=== PATIENT | female | born 1955 | race American Indian/Alaskan Native ===

== ENCOUNTER 2016-03-03 12:29 | Emergency (ER) | payer BC ==
[2016-03-03] MEDS ORDERED: TYLENOL PO ONE (14:05)
--- NOTE | 2016-03-03 14:10 | Emergency Department Report ---
Chief Complaint: Upper Respiratory Infection Stated Complaint: COUGH/FLU SX Time Seen by Provider: 03/03/16 14:08 - HPI History of Present Illness: 60 y/o female complain of sudden onset of generalized body ache .pt is current crying and state she feel weak x 2 days .no prior medical treatment. - ROS Review of Systems: per HPI - Exam Vital Signs: Vital Signs 03/03/16 13:36 Temperature 102.2 F H Pulse Rate 103 H Respiratory 22 Rate Blood Pressure 122/64 O2 Sat by Pulse 99 Oximetry Physical Exam: GENERAL: The patient is well-developed and well-nourished. Patient is in NAD. HENT: Normocephalic. Atraumatic. Patient has moist mucous membranes. Throat: No erythema, swelling or exudates. EYES: Extraocular motions are intact, PERRL NECK: Supple. No meningitic signs are noted. There is no adenopathy noted. CHEST/LUNGS: Clear to auscultation bilaterally. No wheezing, rales or rhonchi noted. There is no respiratory distress noted. HEART/CARDIOVASCULAR: Regular rate and rhythm. Normal S1 S2. No murmurs, rubs , clicks, or gallops. ABDOMEN: Abdomen is soft, nontender.. Bowel sounds normoactive. There is no abdominal distention. Negative rebound tenderness. : Deferred. SKIN: There is no rash. There is no edema. There is no diaphoresis. NEURO: The patient is A&Ox3. The patient has no focal neurologic deficits. MUSCULOSKELETAL: There is no tenderness or deformity. There is no limitation range of motion. PSYCH: Pt has appropriate mood and affect. MSE screening note: Focused history and physical exam performed. Due to findings the following was ordered: ED Disposition for MSE Condition: Stable
--- NOTE | 2016-03-03 14:35 | XRay Report ---
ROUTINE CHEST, TWO VIEWS: HISTORY: Cough, upper respiratory infection. The trachea, heart, mediastinal contour, lung skinner and bony thorax are unremarkable. IMPRESSION: Unremarkable chest x-ray.
[2016-03-03 15:05] LABS: Basophils % (Auto) 0.7 % (0.0-1.8); Eosinophils % (Auto) 0.3 % (0.0-4.3); Hematocrit 36.9 % (30.3-42.9); Hemoglobin 12.2 gm/dl (10.1-14.3); Mean Corpuscular HGB Conc 33 % (30-34); Mean Corpuscular Volume 79 fl (79-97); Platelet Count 178 K/mm3 (140-440); Red Cell Distribution Width 14.4 % (13.2-15.2); White Blood Count 9.1 K/mm3 (4.5-11.0)
[2016-03-03 15:09] LABS: Mean Corpuscular Hemoglobin 26 pg (28-32)
[2016-03-03 15:15] LABS: BUN/Creatinine Ratio 12.85; Blood Urea Nitrogen 9 mg/dL (7-17); Carbon Dioxide 23 mmol/L (22-30); Glucose 101 mg/dL (65-100); Potassium 3.8 mmol/L (3.6-5.0); Sodium 138 mmol/L (137-145)
[2016-03-03 15:26] LABS: Anion Gap 18 mmol/L
[2016-03-03 16:08] LABS: Bilirubin,Urine NEG (Negative); Blood,Urine NEG (Negative); Ketones,Urine NEG (Negative); Leukocyte Esterase,Urine NEG (Negative); Mucus,Urine FEW /HPF; Nitrite,Urine NEG (Negative); Protein,Urine <15 mg/dL mg/dL (Negative); Urobilinogen,Urine < 2.0 mg/dL (<2.0)
[2016-03-04 04:38] VITALS: BP 123/77
[2016-03-04] MEDS ORDERED: TORADOL IM ONE (05:12)
--- NOTE | 2016-03-04 05:19 | Emergency Department Report ---
- General Chief Complaint: Upper Respiratory Infection Stated Complaint: COUGH/FLU SX Time Seen by Provider: 03/04/16 04:50 Source: patient Mode of arrival: Ambulatory Limitations: No Limitations - History of Present Illness Initial Comments: Patient complains of 2 day onset of flu symptoms. States coughing of mucus, has generalized body aches, and her chest pain with coughing and certain movements. States chest pain radiates from left chest to right depending on how she positions her self. Denies headache, difficulty breathing or SOB, fever, chills, N/V/D, abdomen or flank pain, tingling, numbness. States no relief with Ibuprofen. - Related Data Previous Rx's Medication Instructions Recorded Last Taken Type Hydrocodone Bit/Homatrop Me-Br 5 ml PO Q4H PRN #90 cc 01/20/13 Unknown Rx [Hydrocodone-Homatropine Syr 5-1.5 mg/5ml] Amoxicillin [Trimox CAP] 500 mg PO Q8H #30 capsule 04/16/14 Unknown Rx HYDROcodone/APAP 5-325 [[place] 1 each PO Q6HR PRN #12 tablet 04/16/14 Unknown Rx 5-325 mg TAB] Promethazine Dm [Phenergan Dm 5 ml PO Q6H PRN #120 ml 04/16/14 Unknown Rx 6.25/15 mg 5 ml] Acetaminophen/Codeine [Tylenol #3] 1 tab PO Q6H PRN #5 tab 03/04/16 Unknown Rx Azithromycin [Zithromax] 250 mg PO QDAY #6 tablet 03/04/16 Unknown Rx Benzonatate [Tessalon Perles] 100 mg PO Q8HR #30 capsule 03/04/16 Unknown Rx Allergies Allergy/AdvReac Type Severity Reaction Status Date / Time No Known Allergies Allergy Verified 01/20/13 14:02 ED Review of Systems ROS: Stated complaint: COUGH/FLU SX Other details as noted in HPI Comment: All other systems reviewed and negative ED Past Medical Hx - Past Medical History Previous Medical History?: No - Surgical History Past Surgical History?: Yes Additional Surgical History: - Social History Smoking Status: Current Every Day Smoker Substance Use Type: Alcohol, Non Opiate Pain, Prescribed - Medications Home Medications: Home Medications Medication Instructions Recorded Confirmed Last Taken Type Hydrocodone Bit/Homatrop Me-Br 5 ml PO Q4H PRN #90 cc 01/20/13 Unknown Rx [Hydrocodone-Homatropine Syr 5-1.5 mg/5ml] Amoxicillin [Trimox CAP] 500 mg PO Q8H #30 capsule 04/16/14 Unknown Rx HYDROcodone/APAP 5-325 [[place] 1 each PO Q6HR PRN #12 tablet 04/16/14 Unknown Rx 5-325 mg TAB] Promethazine Dm [Phenergan Dm 5 ml PO Q6H PRN #120 ml 04/16/14 Unknown Rx 6.25/15 mg 5 ml] Acetaminophen/Codeine [Tylenol #3] 1 tab PO Q6H PRN #5 tab 03/04/16 Unknown Rx Azithromycin [Zithromax] 250 mg PO QDAY #6 tablet 03/04/16 Unknown Rx Benzonatate [Tessalon Perles] 100 mg PO Q8HR #30 capsule 03/04/16 Unknown Rx ED Physical Exam - General Limitations: No Limitations General appearance: alert, in no apparent distress - Head Head exam: Present: atraumatic, normocephalic - Eye Eye exam: Present: normal appearance, PERRL, EOMI. Absent: scleral icterus, conjunctival injection, periorbital swelling, periorbital tenderness - ENT ENT exam: Present: normal exam, normal orophraynx, mucous membranes moist, TM's normal bilaterally, normal external ear exam - Neck Neck exam: Present: normal inspection, full ROM. Absent: tenderness, meningismus, lymphadenopathy - Respiratory Respiratory exam: Present: normal lung sounds bilaterally. Absent: respiratory distress, wheezes, rales, rhonchi, stridor, chest wall tenderness, accessory muscle use, decreased breath sounds, prolonged expiratory - Cardiovascular Cardiovascular Exam: Present: regular rate, normal rhythm - GI/Abdominal GI/Abdominal exam: Present: soft, normal bowel sounds. Absent: distended, tenderness, organomegaly - Extremities Exam Extremities exam: Present: normal inspection, full ROM, normal capillary refill. Absent: tenderness, pedal edema, joint swelling, calf tenderness - Back Exam Back exam: Present: normal inspection, full ROM. Absent: tenderness, CVA tenderness (R), CVA tenderness (L), vertebral tenderness - Neurological Exam Neurological exam: Present: alert, oriented X3, normal gait, reflexes normal. Absent: motor sensory deficit - Psychiatric Psychiatric exam: Present: normal affect, normal mood - Skin Skin exam: Present: warm, dry, intact, normal color. Absent: rash, cyanosis, diaphoretic, erythema, urticaria, vesicles, petechiae, pallor ED Course Vital Signs 03/03/16 03/04/16 03/04/16 13:36 00:23 04:38 Temperature 102.2 F H 99.9 F H Pulse Rate 103 H 95 H 85 Respiratory 22 18 20 Rate Blood Pressure 122/64 123/71 Blood Pressure 123/77 [Right] O2 Sat by Pulse 99 99 100 Oximetry ED Medical Decision Making - Lab Data Result diagrams: 03/03/16 14:38 03/03/16 14:38 Lab results reviewed. - Radiology Data Radiology results: report reviewed According to radiology report of CXR, no acute cardiopulmonary pathology. - Differential Diagnosis URI, bronchitis Critical care attestation.: If time is entered above; I have spent that time in minutes in the direct care of this critically ill patient, excluding procedure time. ED Disposition Clinical Impression: Flu-like symptoms URI (upper respiratory infection) Qualifiers: URI type: unspecified URI Qualified Code(s): J06.9 - Acute upper respiratory infection, unspecified Disposition: DISCHARGED TO HOME OR SELFCARE Is pt being admited?: No Does the pt Need Aspirin: No Condition: Stable Instructions: Musculoskeletal Pain (ED), Upper Respiratory Infection (ED) Referrals: PRIMARY CARE, [Primary Care Provider] - 2-3 Days [facility] [Outside] - 2-3 Days
== END 2016-03-04 05:37 | disposition home or self-care (01) ==
LOC: ED 12:29
DX: J11.1 Influenza due to unidentified influenza virus with other respiratory manifestations (principal); J06.9 Acute upper respiratory infection, unspecified; F17.210 Nicotine dependence, cigarettes, uncomplicated
CPT/HCPCS: 36415; 71020; 80048; 81001; 85025; 87400; 93005; 93010; 96372; 99284; J1885

== ENCOUNTER 2021-09-26 12:35 | Inpatient (IN) | payer BC, MEDICARE ==
--- NOTE | 2021-09-26 12:57 | Emergency Department Report ---
ED General Adult HPI - General Chief complaint: Chest Pain Stated complaint: CHESTPAIN Time Seen by Provider: 09/26/21 12:54 Source: patient, EMS (Verbal report received from emergency medical services. EMS documentation not available at time of chart dictation ), RN notes reviewed, old records reviewed Mode of arrival: Stretcher Limitations: No Limitations - History of Present Illness Initial comments: The patient was evaluated in the emergency department for symptoms described in the history of present illness. He/she was evaluated in the context of the global COVID-19 pandemic, which necessitated consideration that the patient might be at risk for infection with the virus that causes COVID-19. Institutional protocols and algorithms that pertain to the evaluation of patients at risk for COVID-19 are in a state of rapid change based on inf ormation released by regulatory bodies including the CDC and federal and state organizations. These policies and algorithms were followed during the patient's care in the emergency department. Please note that these policies, procedures and recommendations changed on a rapid basis. This is a pleasant and cooperative 65-year-old female, with a past medical history of alcohol, tobacco and marijuana use, with a positive family history of [place] in brother, who experienced a myocardial infarction at the age of 69. The patient presents to the department today with a complaint of left-sided chest p ain that is associated with back pain. There is no vomiting or diaphoresis or exertional shortness of breath. The pain is intermittent. It does not have exacerbating or relieving factors. No recent aspirin consumption. No travel, surgery, immobilization, DVT or pulmonary embolism risk factors. Patient had a negative nuclear stress test here in 2017. Reports that she has not had a cardiac stratification since then that she is aware of. She was had an outpatient primary care doctor's appointment, started to have chest pain, and EMS was called. The patient reports episodic left-sided nonexertional chest pain, although it appears to be worsening in intensity and frequency, over the past few weeks. -: Gradual, Sudden Location: chest, left Radiation: back Severity scale (0 -10): 8 Quality: aching Consistency: intermittent Improves with: none Worsens with: none Associated Symptoms: denies other symptoms - Related Data Allergies Allergy/AdvReac Type Severity Reaction Status Date / Time No Known Allergies Allergy Verified 09/26/21 12:46 ED Review of Systems ROS: Stated complaint: CHESTPAIN Other details as noted in HPI Comment: All other systems reviewed and negative Cardiovascular: chest pain Musculoskeletal: back pain ED Past Medical Hx - Past Medical History Hx Congestive Heart Failure: No Hx Diabetes: No Hx Asthma: No Hx COPD: No - Surgical History Additional Surgical History: - Social History Smoking Status: Current Every Day Smoker Substance Use Type: None ED Physical Exam - General Limitations: No Limitations General appearance: alert, in no apparent distress - Head Head exam: Present: atraumatic, normocephalic - Eye Eye exam: Present: normal appearance, EOMI. Absent: nystagmus - ENT ENT exam: Present: normal exam, normal orophraynx, mucous membranes moist, normal external ear exam - Neck Neck exam: Present: normal inspection, full ROM. Absent: tenderness, meningismus - Respiratory Respiratory exam: Present: normal lung sounds bilaterally. Absent: respiratory distress, wheezes, rales, rhonchi, stridor, chest wall tenderness, decreased breath sounds - Cardiovascular Cardiovascular Exam: Present: regular rate, normal rhythm, normal heart sounds. Absent: bradycardia, tachycardia, irregular rhythm, systolic murmur, diastolic murmur, rubs, gallop - GI/Abdominal GI/Abdominal exam: Present: soft. Absent: distended, tenderness, guarding, rebound, rigid, pulsatile mass - Extremities Exam Extremities exam: Present: normal inspection, full ROM, normal capillary refill, other (2+ pulses noted in the bilateral upper and lower extremities. There is no palpable cord. negative Homans sign. Muscular compartments are soft. The pelvis is stable.). Absent: pedal edema, calf tenderness - Back Exam Back exam: Present: normal inspection, full ROM. Absent: tenderness, CVA tenderness (R), CVA tenderness (L), paraspinal tenderness, vertebral tenderness - Neurological Exam Neurological exam: Present: alert, oriented X3, normal gait, other (2+ pulses noted in the bilateral upper and lower extremities. There is no palpable cord. negative Homans sign. Muscular compartments are soft. The pelvis is stable.). Absent: motor sensory deficit - Psychiatric Psychiatric exam: Present: normal affect, normal mood - Skin Skin exam: Present: warm, dry, intact, normal color. Absent: rash ED Course Vital Signs 09/26/21 09/26/21 09/26/21 09:01 09:16 09:30 Temperature Pulse Rate 72 69 77 Respiratory 22 18 15 Rate Blood Pressure 110/71 110/71 110/71 Blood Pressure [Left] O2 Sat by Pulse 98 99 100 Oximetry 09/26/21 09/26/21 09/26/21 09:46 10:00 12:43 Temperature 98.2 F Pulse Rate 71 74 96 H Respiratory 23 10 L 16 Rate Blood Pressure 109/73 109/73 Blood Pressure 152/90 [Left] O2 Sat by Pulse 99 98 99 Oximetry 09/26/21 09/26/21 09/26/21 13:01 13:15 13:20 Temperature Pulse Rate 64 71 Respiratory 16 10 L Rate Blood Pressure 147/71 127/76 Blood Pressure [Left] O2 Sat by Pulse 100 99 98 Oximetry 09/26/21 09/26/21 09/26/21 13:31 13:45 14:01 Temperature Pulse Rate 62 73 68 Respiratory 15 15 14 Rate Blood Pressure 127/76 132/84 132/84 Blood Pressure [Left] O2 Sat by Pulse 100 98 99 Oximetry 09/26/21 09/26/21 09/26/21 14:15 14:31 14:45 Temperature Pulse Rate 72 85 82 Respiratory 17 11 L 13 Rate Blood Pressure 127/76 142/74 127/76 Blood Pressure [Left] O2 Sat by Pulse 100 98 97 Oximetry 09/26/21 09/26/21 09/26/21 15:01 15:15 15:31 Temperature Pulse Rate 71 70 77 Respiratory 12 11 L 13 Rate Blood Pressure 127/76 127/76 127/76 Blood Pressure [Left] O2 Sat by Pulse 99 100 99 Oximetry 09/26/21 09/26/21 15:45 16:01 Temperature Pulse Rate 67 65 Respiratory 9 L 12 Rate Blood Pressure 127/76 127/76 Blood Pressure [Left] O2 Sat by Pulse 98 98 Oximetry - Reevaluation(s) Reevaluation #1: 09/26/21 15:12 Differential diagnosis, including but not limited to: GERD, gastritis, hiatal hernia, pneumonia, costochondritis, acute coronary syndrome Assessment and plan 65-year-old female, who is not currently tachycardic, tachypneic or hypoxic, who denies DVT and pulmonary embolism risk factors, who is low risk by Wells criteria for pulmonary embolism, who is moderate risk for major adverse cardiac event as per heart score, with acute chest pain nonspecifically abnormal EKG. Laboratory studies reviewed and appreciated. X-ray of the chest reviewed and appreciated. We will treat the patient supportively and symptomatically. Recommend admission to the medical service for acute chest pain and a cardiac risk stratification Discussed this with the patient. She is agreeable to the plan of care Awaiting callback from hospital physician to arrange admission. Treat with , nitroglycerin, and appropriate medications. Currently resting comfortably in stretcher. Patient given full dose aspirin by EMS. Patient has equal pulses in the upper and lower extremities. She has no pulsatile abdominal mass. She is not especially hypertensive. Mediastinum chest x-ray is unremarkable. I think acute aortic disease is very unlikely. 09/26/21 15:14 09/26/21 16:33 Dr Erica Fine to admit to [facility] ED Medical Decision Making - Lab Data Result diagrams: 09/26/21 Unknown 09/26/21 Unknown Vital Signs 09/26/21 09/26/21 09/26/21 09:01 09:16 09:30 Temperature Pulse Rate 72 69 77 Respiratory 22 18 15 Rate Blood Pressure 110/71 110/71 110/71 Blood Pressure [Left] O2 Sat by Pulse 98 99 100 Oximetry 09/26/21 09/26/21 09/26/21 09:46 10:00 12:43 Temperature 98.2 F Pulse Rate 71 74 96 H Respiratory 23 10 L 16 Rate Blood Pressure 109/73 109/73 Blood Pressure 152/90 [Left] O2 Sat by Pulse 99 98 99 Oximetry 09/26/21 09/26/21 09/26/21 13:01 13:15 13:20 Temperature Pulse Rate 64 71 Respiratory 16 10 L Rate Blood Pressure 147/71 127/76 Blood Pressure [Left] O2 Sat by Pulse 100 99 98 Oximetry Lab Results 09/26/21 09/26/21 09/26/21 Range/Units Unknown Unknown Unknown WBC 7.4 (4.5-11.0) K/mm3 RBC 4.67 (3.65-5.03) M/mm3 Hgb 12.8 (10.1-14.3) gm/dl Hct 37.7 (30.3-42.9) % MCV 81 (79-97) fl MCH 27 L (28-32) pg MCHC 34 (30-34) % RDW 15.0 (13.2-15.2) % Plt Count 189 (140-440) K/mm3 Lymph % (Auto) 29.4 (13.4-35.0) % [place] % (Auto) 9.3 H (0.0-7.3) % Eos % (Auto) 0.7 (0.0-4.3) % Baso % (Auto) 0.8 (0.0-1.8) % Lymph # (Auto) 2.2 (1.2-5.4) K/mm3 [place] # (Auto) 0.7 (0.0-0.8) K/mm3 Eos # (Auto) 0.1 (0.0-0.4) K/mm3 Baso # (Auto) 0.1 (0.0-0.1) K/mm3 Seg Neutrophils % 59.8 (40.0-70.0) % Seg Neutrophils # 4.4 (1.8-7.7) K/mm3 PT 13.4 (12.2-14.9) Sec. INR 0.92 (0.87-1.13) Sodium 140 (137-145) mmol/L Potassium 3.8 (3.6-5.0) mmol/L Chloride 106.2 (98-107) mmol/L Carbon Dioxide 23 (22-30) mmol/L Anion Gap 15 mmol/L BUN 13 (7-17) mg/dL Creatinine 0.6 (0.6-1.2) mg/dL Estimated GFR > 60 ml/min BUN/Creatinine Ratio 22 % Glucose 89 (65-100) mg/dL Calcium 9.2 (8.4-10.2) mg/dL Magnesium 2.20 (1.7-2.3) mg/dL Total Bilirubin 0.30 (0.1-1.2) mg/dL AST 17 (5-40) units/L ALT 11 (7-56) units/L Alkaline Phosphatase 79 (35-129) units/L Total Creatine Kinase 146 H (30-135) units/L Troponin T < 0.010 (0.00-0.029) ng/mL Total Protein 7.1 (6.3-8.2) g/dL Albumin 4.6 (3.9-5) g/dL Albumin/Globulin Ratio 1.8 % - EKG Data -: EKG Interpreted by Ca EKG shows normal: sinus rhythm Rate: normal - EKG Data 09/26/21 15:05 The EKG is interpreted at 13: 07 Sinus rhythm, rate 62 bpm. Normal axis, normal P wave axis, left ventricular hypertrophy. Multiple T wave inversions and abnormalities. T wave inversions in the lateral leads appear to be more prominent than when on prior EKG from 2017. Inferior T wave abnormalities are more pronounced when compared to prior EKG. This EKG is not a STEMI. - Radiology Data Radiology results: pending, report reviewed, image reviewed CHEST 1 VIEW 09/26/2021 1:37 PM INDICATION / CLINICAL INFORMATION: Chest Pain. COMPARISON: None available. FINDINGS: SUPPORT DEVICES: None. HEART / MEDIAS TINUM: No significant abnormality. LUNGS / PLEURA: No significant pulmonary or pleural abnormality. No pneumothorax. ADDITIONAL FINDINGS: No significant additional findings. IMPRESSION: 1. No acute findings. Signer Name: Conrad Bo Jr, MD Signed: 09/26/2021 12:52 PM Workstation Name: [id number] Critical care attestation.: If time is entered above; I have spent that time in minutes in the direct care of this critically ill patient, excluding procedure time. ED Disposition Clinical Impression: Acute chest pain Disposition: ADMITTED INPATIENT Is pt being admited?: Yes Does the pt Need Aspirin: No (Given aspirin by EMS) Condition: Stable Instructions: Chest Pain (ED) Heart Score - HEART Score History: Moderately suspicious EKG: Non-specific Age: 45-65 Risk factors: 1-2 risk factors Troponin: < normal limit HEART Score: 4 - EKG Read Time Time EKG Completed: 13:07 EKG Read Time: 13:07 - Critical Actions Critical Actions: 4-6 pts:12-16.6% risk of adverse cardiac event. Should be admitted
[2021-09-26 13:41] LABS: Basophils # (Auto) 0.1 K/mm3 (0.0-0.1); Basophils % (Auto) 0.8 % (0.0-1.8); Eosinophils # (Auto) 0.1 K/mm3 (0.0-0.4); Eosinophils % (Auto) 0.7 % (0.0-4.3); Hematocrit 37.7 % (30.3-42.9); Hemoglobin 12.8 gm/dl (10.1-14.3); Lymphocytes # (Auto) 2.2 K/mm3 (1.2-5.4); Lymphocytes % (Auto) 29.4 % (13.4-35.0); Mean Corpuscular HGB Conc 34 % (30-34); Mean Corpuscular Volume 81 fl (79-97); Monocytes # (Auto) 0.7 K/mm3 (0.0-0.8); Monocytes % (Auto) 9.3 % (0.0-7.3); Platelet Count 189 K/mm3 (140-440); Red Blood Count 4.67 M/mm3 (3.65-5.03)
[2021-09-26 13:51] LABS: INR 0.92 (0.87-1.13)
--- NOTE | 2021-09-26 13:57 | XRay Report ---
CHEST 1 VIEW 09/26/2021 1:37 PM INDICATION / CLINICAL INFORMATION: Chest Pain. COMPARISON: None available. FINDINGS: SUPPORT DEVICES: None. HEART / MEDIASTINUM: No significant abnormality. LUNGS / PLEURA: No significant pulmonary or pleural abnormality. No pneumothorax. ADDITIONAL FINDINGS: No significant additional findings. IMPRESSION: 1. No acute findings. Signer Name: Conrad Bo Jr, MD Signed: 09/26/2021 1:52 PM Workstation Name: [id number]
[2021-09-26 14:06] LABS: Alanine Aminotransferase 11 units/L (7-56); Albumin 4.6 g/dL (3.9-5); Blood Urea Nitrogen 13 mg/dL (7-17); Calcium 9.2 mg/dL (8.4-10.2); Hemolysis Index 13
[2021-09-26 14:10] LABS: BUN/Creatinine Ratio 22
[2021-09-26] MEDS ORDERED: MORPHINE 4 MG/1 ML INJ IV ONE (14:24)
[2021-09-26] MEDS ORDERED: NITROGLYCERIN 0.4 MG TAB SUBL SL PRN (14:24)
[2021-09-26] MEDS ORDERED: PANTOPRAZOLE 40 MG INJ IV ONE (14:24)
[2021-09-26] MEDS ORDERED: ACETAMINOPHEN 325 MG TAB PO PRN ×2 (16:34→21:04)
[2021-09-26] MEDS ORDERED: ONDANSETRON 4 MG/2 ML INJ IV PRN ×2 (16:34→21:04)
--- NOTE | 2021-09-26 21:02 | History and Physical Report ---
History of Present Illness Date of examination: 09/26/21 Date of admission: 09/26/2021 Chief complaint: Chest pain since a.m. History of present illness: 65-year-old female with no significant past medical history but dependent on alcohol use, smoking and marijuana use and family history of coronary artery disease comes in for left-sided chest pain radiating to the back. Chest pain is about 8 on a scale of 1-10. No diaphoresis or shortness of breath. Chest pain is intermittent. No recent travel. No exacerbating or relieving factors. Chest pain is. - Past Medical History --No - Surgical History --Additional Surgical History: - Social History --Smoking Status: Current Every Day Smoker --Substance Use Type: None -Family history --Htn Review of Systems --ROS: Constitutional no weight loss or weight gain no fever or chills HEENT no sore throat no post nasal drip no diplopia Neck no neck stiffness no lymph gland enlargement Chest and lungs no shortness of breath cough or wheezing CVS chest pain since a.m. GI no nausea no vomiting no diarrhea Genitourinary system no dysuria no flank pain Musculoskeletal system no muscle pains no joint pains [employer] no syncope no seizures Skin no rash no itching Psychiatric no depression no homicidal or suicidal tendencies Hematologic no lymphedema or bruising Endocrine no polydipsia no polyuria no cold intolerance no heat intolerance Medications and Allergies Allergies Allergy/AdvReac Type Severity Reaction Status Date / Time No Known Allergies Allergy Verified 09/26/21 12:46 Active Meds: Active Medications Acetaminophen (Acetaminophen 325 Mg Tab) 650 mg PO Q4H PRN PRN Reason: Pain MILD(1-3)/Fever >100.5/[place] Nitroglycerin (Nitroglycerin 0.4 Mg Tab Subl) 0.4 mg SL .Q5MIN PRN PRN Reason: Chest Pain Last Admin: 09/26/21 14:42 Dose: 0.4 mg Ondansetron HCl (Ondansetron 4 Mg/2 Ml Inj) 4 mg IV Q8H PRN PRN Reason: Nausea And Vomiting Sodium Chloride (Sodium Chloride 0.9% 10 Ml Flush Syringe) 10 ml IV BID ALEX Last Admin: 09/26/21 19:30 Dose: 10 ml Sodium Chloride (Sodium Chloride 0.9% 10 Ml Flush Syringe) 10 ml IV PRN PRN PRN Reason: LINE FLUSH Exam - Constitutional Vitals: Temp Pulse Resp BP Pulse Ox 98.0 F 74 18 154/64 100 09/26/21 19:30 09/26/21 19:30 09/26/21 19:30 09/26/21 19:30 09/26/21 19:30 General appearance: Present: no acute distress, well-nourished - EENT Eyes: Present: PERRL ENT: hearing intact, clear oral mucosa - Neck Neck: Present: supple, normal ROM - Respiratory Respiratory effort: normal Respiratory: bilateral: CTA - Cardiovascular Heart rate: 78 Rhythm: regular Heart Sounds: Present: S1 & S2. Absent: rub, click - Extremities Extremities: no ischemia, pulses intact, pulses symmetrical, No edema Peripheral Pulses: within normal limits - Abdominal General gastrointestinal: Present: soft, non-tender, non-distended, normal bowel sounds Female genitourinary: Present: normal - Rectal Rectal Exam: deferred - Integumentary Integumentary: Present: clear, warm, dry - Musculoskeletal Musculoskeletal: gait normal, strength equal bilaterally - Psychiatric Psychiatric: appropriate mood/affect, intact judgment & insight - Neurologic Neurologic: CNII-XII intact, moves all extremities - Allied Health Allied health notes reviewed: nursing, case management HEART Score - HEART Score EKG: Non-specific Age: 45-65 Risk factors: 1-2 risk factors Troponin: Troponin T < 0.010 ng/mL (0.00-0.029) 09/26/21 Unknown Troponin: < normal limit - Critical Actions Critical Actions: 4-6 pts:12-16.6% risk of adverse cardiac event. Should be admitted Results - Labs CBC & Chem 7: 09/27/21 05:58 09/26/21 Unknown Labs: Laboratory Last Values WBC 7.4 K/mm3 (4.5-11.0) 09/26/21 Unknown RBC 4.67 M/mm3 (3.65-5.03) 09/26/21 Unknown Hgb 12.8 gm/dl (10.1-14.3) 09/26/21 Unknown Hct 37.7 % (30.3-42.9) 09/26/21 Unknown MCV 81 fl (79-97) 09/26/21 Unknown MCH 27 pg (28-32) L 09/26/21 Unknown MCHC 34 % (30-34) 09/26/21 Unknown RDW 15.0 % (13.2-15.2) 09/26/21 Unknown Plt Count 189 K/mm3 (140-440) 09/26/21 Unknown Lymph % (Auto) 29.4 % (13.4-35.0) 09/26/21 Unknown [place] % (Auto) 9.3 % (0.0-7.3) H 09/26/21 Unknown Eos % (Auto) 0.7 % (0.0-4.3) 09/26/21 Unknown Baso % (Auto) 0.8 % (0.0-1.8) 09/26/21 Unknown Lymph # (Auto) 2.2 K/mm3 (1.2-5.4) 09/26/21 Unknown [place] # (Auto) 0.7 K/mm3 (0.0-0.8) 09/26/21 Unknown Eos # (Auto) 0.1 K/mm3 (0.0-0.4) 09/26/21 Unknown Baso # (Auto) 0.1 K/mm3 (0.0-0.1) 09/26/21 Unknown Seg Neutrophils % 59.8 % (40.0-70.0) 09/26/21 Unknown Seg Neutrophils # 4.4 K/mm3 (1.8-7.7) 09/26/21 Unknown PT 13.4 Sec. (12.2-14.9) 09/26/21 Unknown INR 0.92 (0.87-1.13) 09/26/21 Unknown Sodium 140 mmol/L (137-145) 09/26/21 Unknown Potassium 3.8 mmol/L (3.6-5.0) 09/26/21 Unknown Chloride 106.2 mmol/L (98-107) 09/26/21 Unknown Carbon Dioxide 23 mmol/L (22-30) 09/26/21 Unknown Anion Gap 15 mmol/L 09/26/21 Unknown BUN 13 mg/dL (7-17) 09/26/21 Unknown Creatinine 0.6 mg/dL (0.6-1.2) 09/26/21 Unknown Estimated GFR > 60 ml/min 09/26/21 Unknown BUN/Creatinine Ratio 22 % 09/26/21 Unknown Glucose 89 mg/dL (65-100) 09/26/21 Unknown Calcium 9.2 mg/dL (8.4-10.2) 09/26/21 Unknown Magnesium 2.20 mg/dL (1.7-2.3) 09/26/21 Unknown Total Bilirubin 0.30 mg/dL (0.1-1.2) 09/26/21 Unknown AST 17 units/L (5-40) 09/26/21 Unknown ALT 11 units/L (7-56) 09/26/21 Unknown Alkaline Phosphatase 79 units/L (35-129) 09/26/21 Unknown Total Creatine Kinase 146 units/L (30-135) H 09/26/21 Unknown Troponin T < 0.010 ng/mL (0.00-0.029) 09/26/21 Unknown Total Protein 7.1 g/dL (6.3-8.2) 09/26/21 Unknown Albumin 4.6 g/dL (3.9-5) 09/26/21 Unknown Albumin/Globulin Ratio 1.8 % 09/26/21 Unknown Short CBC 09/26/21 09/27/21 Range/Units Unknown 05:58 WBC 7.4 6.1 (4.5-11.0) K/mm3 Hgb 12.8 12.4 (10.1-14.3) gm/dl Hct 37.7 36.7 (30.3-42.9) % Plt Count 189 182 (140-440) K/mm3 BMP 09/26/21 Unknown Sodium 140 Potassium 3.8 Chloride 106.2 Carbon Dioxide 23 BUN 13 Creatinine 0.6 Glucose 89 Calcium 9.2 Cardiac Enzymes 09/26/21 09/26/21 09/26/21 Range/Units 16:36 20:02 23:02 Total Creatine Kinase (30-135) units/L Troponin T < 0.010 < 0.010 < 0.010 (0.00-0.029) ng/mL 09/26/21 Range/Units Unknown Total Creatine Kinase 146 H (30-135) units/L Troponin T < 0.010 (0.00-0.029) ng/mL Liver Function 09/26/21 Range/Units Unknown Total Bilirubin 0.30 (0.1-1.2) mg/dL AST 17 (5-40) units/L ALT 11 (7-56) units/L Alkaline Phosphatase 79 (35-129) units/L Albumin 4.6 (3.9-5) g/dL - Imaging and Cardiology EKG: report reviewed Assessment and Plan Advance Directives: Yes (Full code) VTE prophylaxis?: Chemical Plan of care discussed with patient/family: Yes - Patient Problems (1) Acute coronary syndrome Current Visit: No Status: Acute Plan to address problem: Rule out myocardial ischemia Serial troponins Stress test is not available on weekends Will get stress test as an outpatient if troponins are negative No risk factors except for family history of coronary artery disease (2) Costochondritis, acute Current Visit: No Status: Acute Plan to address problem: Has some chest wall tenderness Possible costochondritis (3) DVT prophylaxis Current Visit: Yes Status: Acute Plan to address problem: On anticoagulation GI prophylaxis (4) Advance care planning Current Visit: Yes Status: Acute Plan to address problem: Disease education conducted, care plan discussed, diagnosis discussed And prognosis discussed. Patient acknowledged understanding with care plan. +30 minutes. Full code.
[2021-09-26] MEDS ORDERED: MORPHINE 2 MG/1 ML INJ IV PRN (21:04)
[2021-09-26] MEDS ORDERED: METOCLOPRAMIDE 10 MG/2 ML INJ IV PRN (21:04)
[2021-09-26] MEDS: FAMOTIDINE 20 MG TAB PO SCH (21:56)
[2021-09-26] MEDS: HEPARIN 5,000 UNIT/1 ML VIAL SUB-Q SCH (21:56)
[2021-09-26] MEDS: oxyCODONE /ACETAMINOPHEN 5-325MG TAB PO PRN (22:02)
[2021-09-27] MEDS: oxyCODONE /ACETAMINOPHEN 5-325MG TAB PO PRN (04:32)
[2021-09-27 06:59] LABS: Basophils % (Auto) 0.3 % (0.0-1.8); Eosinophils # (Auto) 0.1 K/mm3 (0.0-0.4); Eosinophils % (Auto) 1.3 % (0.0-4.3); Hematocrit 36.7 % (30.3-42.9); Hemoglobin 12.4 gm/dl (10.1-14.3); Lymphocytes # (Auto) 2.2 K/mm3 (1.2-5.4); Lymphocytes % (Auto) 36.1 % (13.4-35.0); Mean Corpuscular HGB Conc 34 % (30-34); Mean Corpuscular Volume 81 fl (79-97); Monocytes # (Auto) 0.6 K/mm3 (0.0-0.8); Monocytes % (Auto) 9.5 % (0.0-7.3); Platelet Count 182 K/mm3 (140-440); Red Blood Count 4.52 M/mm3 (3.65-5.03); Red Cell Distribution Width 14.8 % (13.2-15.2)
[2021-09-27 08:33] LABS: Alanine Aminotransferase 9 units/L (7-56); Albumin 4.2 g/dL (3.9-5); Blood Urea Nitrogen 11 mg/dL (7-17); Calcium 8.7 mg/dL (8.4-10.2); Hemolysis Index 10
[2021-09-27 08:38] LABS: BUN/Creatinine Ratio 18
--- NOTE | 2021-09-27 09:15 | Consultation ---
History of Present Illness Consult date: 09/27/21 Requesting physician: CRISTY RANDALL Consult reason: other (ACS) History of present illness: Pt is a 65-year-old AA female with no significant past medical hx who presented with complaints of chest pain. She reports it has been going on for several years but has become more severe lately. Pt describes pain as left-sided pressure "like something sitting on my chest." It sometimes radiates posteriorly to her left shoulder blade and sometimes to the right side of her chest. Episodes are sporadic and vary in duration. Aggravated and/or relieved by changing positions or bending over. Relieved by applying pressure to chest with hand. No associated sx, including palpitations, dizziness, lightheadedness, diaphoresis, SOB, or nausea. Pt also has unrelated reports of transient tingling in her right arm and a lump near her right elbow. She has been seen by our group during previous hospitalizations but has never followed up as an outpatient. Tn neg x 4 at this time. ECG reveals NSR w/anterolateral T wave inversions (which were present in 2017). Pt underwent Lexiscan stress MPI in 2017, which was negative for ischemia. Past History Past Medical History: No medical history Past Surgical History: denies: CABG, PTCA Social history: smoking, alcohol abuse Family history: CAD Medications and Allergies Allergies Allergy/AdvReac Type Severity Reaction Status Date / Time No Known Allergies Allergy Verified 09/26/21 12:46 Home Medications Medication Instructions Recorded Confirmed Last Taken Type No Known Home Medications [No 09/27/21 09/27/21 Unknown History Reported Home Medications] Active Meds: Active Medications Acetaminophen (Acetaminophen 325 Mg Tab) 650 mg PO Q4H PRN PRN Reason: Pain MILD(1-3)/Fever >100.5/[place] Famotidine (Famotidine 20 Mg Tab) 20 mg PO BID [facility] Last Admin: 09/26/21 21:56 Dose: 20 mg Heparin Sodium (Porcine) (Heparin 5,000 Unit/1 Ml Vial) 5,000 unit SUB-Q Q12HR [facility] Last Admin: 09/26/21 21:56 Dose: 5,000 unit Metoclopramide HCl (Metoclopramide 10 Mg/2 Ml Inj) 10 mg IV Q6H PRN PRN Reason: Nausea And Vomiting Morphine Sulfate (Morphine 2 Mg/1 Ml Inj) 2 mg IV Q4H PRN PRN Reason: Pain, Moderate (4-6) Last Admin: 09/26/21 23:11 Dose: 2 mg Nitroglycerin (Nitroglycerin 0.4 Mg Tab Subl) 0.4 mg SL .Q5MIN PRN PRN Reason: Chest Pain Last Admin: 09/26/21 14:42 Dose: 0.4 mg Ondansetron HCl (Ondansetron 4 Mg/2 Ml Inj) 4 mg IV Q8H PRN PRN Reason: Nausea And Vomiting Oxycodone/Acetaminophen (Oxycodone /Acetaminophen 5-325mg Tab) 1 tab PO Q6H PRN PRN Reason: Pain, Moderate (4-6) Last Admin: 09/27/21 04:32 Dose: 1 tab Sodium Chloride (Sodium Chloride 0.9% 10 Ml Flush Syringe) 10 ml IV BID ALEX Last Admin: 09/26/21 21:59 Dose: 10 ml Sodium Chloride (Sodium Chloride 0.9% 10 Ml Flush Syringe) 10 ml IV PRN PRN PRN Reason: LINE FLUSH Review of Systems Constitutional: no fever, no chills Ears, nose, mouth and throat: no nasal congestion, no sore throat Cardiovascular: chest pain, no orthopnea, no palpitations, no edema, no syncope, no lightheadedness, no shortness of breath, no claudication Respiratory: no cough, no shortness of breath Gastrointestinal: no abdominal pain, no nausea, no vomiting Genitourinary Female: no dysuria Musculoskeletal: no myalgias Integumentary: other (RUE lump near elbow), no rash, no wounds Neurological: tingling (transient RUE), no numbness, no seizures, no syncope, no vertigo, no headaches Endocrine: no cold intolerance, no heat intolerance Hematologic/Lymphatic: no easy bruising, no easy bleeding Allergic/Immunologic: no anaphylaxis Physical Examination Vital Signs Pulse Resp BP Pulse Ox 72 22 110/71 98 09/26/21 09:01 09/26/21 09:01 09/26/21 09:01 09/26/21 09:01 General appearance: no acute distress HEENT: Positive: EOMI, Normocephaly Neck: Negative: JVD/HJR Cardiac: Positive: Reg Rate and Rhythm, S1/S2 Lungs: Positive: clear to auscultation Neuro: Positive: Grossly Intact Abdomen: Positive: Soft. Negative: Tender Skin: Negative: Rash Musculoskeletal: No Pain Extremities: Present: warm. Absent: edema Results 09/27/21 05:58 09/27/21 05:58 Cardiac Enzymes 09/26/21 09/27/21 Range/Units Unknown 05:58 AST 17 16 (5-40) units/L Coagulation 09/26/21 Range/Units Unknown PT 13.4 (12.2-14.9) Sec. INR 0.92 (0.87-1.13) CBC 09/26/21 09/27/21 Range/Units Unknown 05:58 WBC 7.4 6.1 (4.5-11.0) K/mm3 RBC 4.67 4.52 (3.65-5.03) M/mm3 Hgb 12.8 12.4 (10.1-14.3) gm/dl Hct 37.7 36.7 (30.3-42.9) % Plt Count 189 182 (140-440) K/mm3 Lymph # (Auto) 2.2 2.2 (1.2-5.4) K/mm3 [place] # (Auto) 0.7 0.6 (0.0-0.8) K/mm3 Eos # (Auto) 0.1 0.1 (0.0-0.4) K/mm3 Baso # (Auto) 0.1 0.0 (0.0-0.1) K/mm3 Comprehensive Metabolic Panel 09/26/21 09/27/21 Range/Units Unknown 05:58 Sodium 140 142 (137-145) mmol/L Potassium 3.8 4.1 (3.6-5.0) mmol/L Chloride 106.2 103.6 (98-107) mmol/L Carbon Dioxide 23 22 (22-30) mmol/L BUN 13 11 (7-17) mg/dL Creatinine 0.6 0.6 (0.6-1.2) mg/dL Glucose 89 96 (65-100) mg/dL Calcium 9.2 8.7 (8.4-10.2) mg/dL AST 17 16 (5-40) units/L ALT 11 9 (7-56) units/L Alkaline Phosphatase 79 80 (35-129) units/L Total Protein 7.1 6.5 (6.3-8.2) g/dL Albumin 4.6 4.2 (3.9-5) g/dL - Imaging and Cardiology EKG: report reviewed, image reviewed - EKG Interpretation EKG: no acute changes EKG interpretations - EKG Sinus rhythms and dysrhythmias: sinus rhythm Additional Comments: ANTEROLATERAL TWI (PRESENT IN 2016) Assessment and Plan Assessment: Atypical Chest Pain Transient RUE Paresthesia Tobacco Abuse EtOH Abuse Plan: Chest appears to be musculoskeletal. Recommend Ibuprofen 600mg TID. Will plan for Lexiscan stress MPI on Wednesday given recurrent symptoms. Pt seen in conjunction with Dr. Durham, who agrees with the assessment and plan of care. - Patient Problems (1) Atypical chest pain Current Visit: Yes Status: Acute
[2021-09-27] MEDS: FAMOTIDINE 20 MG TAB PO SCH (10:21)
[2021-09-27] MEDS: HEPARIN 5,000 UNIT/1 ML VIAL SUB-Q SCH (10:21)
[2021-09-27] MEDS ORDERED: IBUPROFEN 600 MG TAB PO PRN (12:18)
--- NOTE | 2021-09-27 16:56 | Discharge Summary ---
Providers - Providers Date of Admission: 09/26/21 21:04 Attending physician: CRISTY RANDALL 09/26/21 21:18 Consult to Physician [CONS] Routine Comment: Consulting Provider: GIANNI LIU Physician Instructions: Reason For Exam: ACS Primary care physician: KHURRAM DONNELLY MD Hospitalization Condition: Stable Disposition: 01 HOME / SELF CARE / HOMELESS - Discharge Diagnoses (1) Acute coronary syndrome Status: Acute Comment: Musculoskeletal CE's and Lexiscan negative (2) Costochondritis, acute Status: Acute Comment: Meloxicam 7.5 mg po bid (3) DVT prophylaxis Status: Acute (4) Advance care planning Status: Acute Exam - Constitutional Vitals: Temp Pulse Resp BP Pulse Ox 97.7 F 66 16 129/65 98 09/27/21 08:15 09/27/21 11:00 09/27/21 04:27 09/27/21 08:15 09/27/21 11:00 Plan Follow up with: KHURRAM DONNELLY MD [Primary Care Provider] - 7 Days BRADLEY COATES MD [Staff Physician] - 7 Days
[2021-09-27 17:01] VITALS: BP 136/68
--- NOTE | 2021-09-28 14:38 | Electrocardiograph Report ---
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
--- NOTE | 2021-09-28 14:40 | Electrocardiograph Report ---
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
--- NOTE | 2021-09-28 14:44 | Electrocardiograph Report ---
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
== END 2021-09-27 17:32 | disposition home or self-care (01) | DRG 311 ==
LOC: ED 12:35 → 4A 21:04
PROVIDERS: ADMIT Internal Medicine; ATTEND Internal Medicine
DX: I24.9 Acute ischemic heart disease, unspecified (principal); F17.200 Nicotine dependence, unspecified, uncomplicated; M94.0 Chondrocostal junction syndrome [Tietze]; F10.10 Alcohol abuse, uncomplicated; Y90.9 Presence of alcohol in blood, level not specified; Z82.49 Family history of ischemic heart disease and other diseases of the circulatory system
CPT/HCPCS: 36415; 71045; 80053; 82550; 83735; 84484; 85025; 85610; 93005; G0378; C9113; J1644; J2270